=== PATIENT | female | born 1985 | race Asian ===

== ENCOUNTER 2020-03-29 07:08 | Outpatient (REF) | payer OTHER, SELFPAY ==
[2020-03-29 11:24] LABS: Glucose Urine UA NEG (NEG); Leukocyte Esterase Urine NEG (NEG); Nitrite Urine NEG (NEG); PH 6.5 (5.0-8.0); Specific Gravity - Urine 1.025 (1.005-1.025); Urine Blood NEG (NEG); Urine Ketones NEG (NEG); Urine Protein NEG (NEG-TRACE)
[2020-03-29 11:29] LABS: Appearance Urine CLEAR; Color Urine YELLOW
[2020-03-29 11:39] LABS: Hematocrit 37.9 % (37-47); Hemoglobin 12.8 g/dl (12.0-16.0); Mean Corpuscular HGB Conc 33.8 g/dl (31.0-35.0); Mean Corpuscular Hemoglobin 30.3 pg (27.0-33.0); Mean Corpuscular Volume 89.6 fL (80-98); Mean Platelet Volume 10.1 fL (9.4-12.3); Platelet Count 301 X10*3/uL (160-400); Red Blood Count 4.23 X10*6/uL (4.20-5.50); Red Cell Distribution Width 12.6 % (11.0-16.0); White Blood Count 7.5 X10*3/uL (4.8-10.8)
[2020-03-29 12:18] LABS: Alanine Aminotransferase 14 U/L (0-31); Alkaline Phosphatase 63 U/L (39-117); Anion Gap 13 (12-20); Aspartate Amino Transferase 11 U/L (5-31); Bilirubin Total 0.2 mg/dL (0.0-1.0); Blood Urea Nitrogen 15 mg/dL (9-16); Calcium 9.1 mg/dL (8.4-10.2); Carbon Dioxide 23 mmol/L (22-29); Chloride 107 mmol/L (96-108); Cholesterol 220 mg/dL; Estimated Glomerular Filt Rate > 60; Glucose Fasting 84 mg/dL (60-99); HDL Cholesterol 43 mg/dL; LDL Cholesterol Calculated 115 mg/dl; Potassium 4.2 mmol/l (3.3-5.1); Sodium 139 mmol/L (135-145); Total Protein 6.7 g/dL (6.5-8.0); Triglycerides 311 mg/dL
[2020-03-29 12:19] LABS: Free T4 (Free Thyroxine) 0.97 ng/dL (0.71-1.85); Thyroid Stimulating Hormone 3.34 mIU/mL (0.32-4.0)
[2020-03-29 13:11] LABS: Rheumatoid Factor < 15.0 IU/mL (<15.0)
[2020-03-29 14:07] LABS: Erythrocyte Sedimentation Rate 13 MM/HR (0-20)
[2020-03-31 11:07] LABS: Cyclic Citrullinated Peptide 31 UNITS
== END 2020-03-29 07:09 | disposition home or self-care (01) ==
LOC: HO.HMGCLDS 07:08
PROVIDERS: PCP Internal Medicine; Visit Provider Internal Medicine
DX: Z00.00 Encounter for general adult medical examination without abnormal findings (principal); F51.02 Adjustment insomnia; R53.83 Other fatigue; M25.50 Pain in unspecified joint
CPT/HCPCS: 36415; 80053; 80061; 81003; 84439; 84443; 85027; 85652; 86200; 86431

== ENCOUNTER 2020-05-31 07:44 | Outpatient (REF) | payer OTHER, SELFPAY ==
[2020-05-31 11:55] LABS: HCG Quantitative 509 mIU/mL
== END 2020-05-31 07:45 | disposition home or self-care (01) ==
LOC: HO.HMGCLDS 07:44
PROVIDERS: PCP Internal Medicine; Visit Provider Hospitalist
DX: N91.2 Amenorrhea, unspecified (principal); Z32.01 Encounter for pregnancy test, result positive
CPT/HCPCS: 84702

== ENCOUNTER 2020-07-06 14:54 | Outpatient (REF) | payer OTHER, SELFPAY ==
--- NOTE | 2020-07-06 15:55 | XR_ITS ---
EXAMINATION: XR BILATERAL HAND XR BILATERAL KNEE CLINICAL INFORMATION: Knee pain and hand pain. COMPARISON: None TECHNIQUE: 3 views each knee. 4 views each hand. FINDINGS: RIGHT KNEE: There is a mild reduction in medial and patellofemoral compartment joint space with periarticular spurring. There are no loose bodies or bony erosive changes. The soft tissues are normal. LEFT KNEE: There is mild loss of medial and patellofemoral compartment joint space. There is mild superior patellar spurring. No loose bodies or bony erosive changes seen. The soft tissues are normal. RIGHT HAND/WRIST: There is no visible acute fracture, dislocation or subluxation seen. The soft tissues are normal. No bony erosive changes seen. LEFT HAND/WRIST: Left wrist and left hand joint space is maintained normal. No bony erosive changes or loose body seen. There is no abnormal joint effusion. XR/XR hand wrist RT IMPRESSION: 1. Mild degenerative changes both knees without any joint effusion or bony erosive changes. There is mild superior patellar spurring. No loose body seen. 2. Unremarkable right hand/wrist exam.
--- NOTE | 2020-07-06 15:55 | XR_ITS ---
EXAMINATION: XR BILATERAL HAND XR BILATERAL KNEE CLINICAL INFORMATION: Knee pain and hand pain. COMPARISON: None TECHNIQUE: 3 views each knee. 4 views each hand. FINDINGS: RIGHT KNEE: There is a mild reduction in medial and patellofemoral compartment joint space with periarticular spurring. There are no loose bodies or bony erosive changes. The soft tissues are normal. LEFT KNEE: There is mild loss of medial and patellofemoral compartment joint space. There is mild superior patellar spurring. No loose bodies or bony erosive changes seen. The soft tissues are normal. RIGHT HAND/WRIST: There is no visible acute fracture, dislocation or subluxation seen. The soft tissues are normal. No bony erosive changes seen. LEFT HAND/WRIST: Left wrist and left hand joint space is maintained normal. No bony erosive changes or loose body seen. There is no abnormal joint effusion. XR/XR hand wrist LT IMPRESSION: 1. Mild degenerative changes both knees without any joint effusion or bony erosive changes. There is mild superior patellar spurring. No loose body seen. 2. Unremarkable right hand/wrist exam.
--- NOTE | 2020-07-06 15:55 | XR_ITS ---
EXAMINATION: XR BILATERAL HAND XR BILATERAL KNEE CLINICAL INFORMATION: Knee pain and hand pain. COMPARISON: None TECHNIQUE: 3 views each knee. 4 views each hand. FINDINGS: RIGHT KNEE: There is a mild reduction in medial and patellofemoral compartment joint space with periarticular spurring. There are no loose bodies or bony erosive changes. The soft tissues are normal. LEFT KNEE: There is mild loss of medial and patellofemoral compartment joint space. There is mild superior patellar spurring. No loose bodies or bony erosive changes seen. The soft tissues are normal. RIGHT HAND/WRIST: There is no visible acute fracture, dislocation or subluxation seen. The soft tissues are normal. No bony erosive changes seen. LEFT HAND/WRIST: Left wrist and left hand joint space is maintained normal. No bony erosive changes or loose body seen. There is no abnormal joint effusion. XR/XR knee RT 3V IMPRESSION: 1. Mild degenerative changes both knees without any joint effusion or bony erosive changes. There is mild superior patellar spurring. No loose body seen. 2. Unremarkable right hand/wrist exam.
--- NOTE | 2020-07-06 15:55 | XR_ITS ---
EXAMINATION: XR BILATERAL HAND XR BILATERAL KNEE CLINICAL INFORMATION: Knee pain and hand pain. COMPARISON: None TECHNIQUE: 3 views each knee. 4 views each hand. FINDINGS: RIGHT KNEE: There is a mild reduction in medial and patellofemoral compartment joint space with periarticular spurring. There are no loose bodies or bony erosive changes. The soft tissues are normal. LEFT KNEE: There is mild loss of medial and patellofemoral compartment joint space. There is mild superior patellar spurring. No loose bodies or bony erosive changes seen. The soft tissues are normal. RIGHT HAND/WRIST: There is no visible acute fracture, dislocation or subluxation seen. The soft tissues are normal. No bony erosive changes seen. LEFT HAND/WRIST: Left wrist and left hand joint space is maintained normal. No bony erosive changes or loose body seen. There is no abnormal joint effusion. XR/XR knee LT 3V IMPRESSION: 1. Mild degenerative changes both knees without any joint effusion or bony erosive changes. There is mild superior patellar spurring. No loose body seen. 2. Unremarkable right hand/wrist exam.
[2020-07-06 16:05] LABS: MANUAL DIFF FLAG NO
[2020-07-06 16:06] LABS: Basophils Percent Auto 0.5 % (0-2); Eosinophils Absolute Auto 0.5 X10*3/uL (0.0-0.4); Hematocrit 40.1 % (37-47); Hemoglobin 13.2 g/dl (12.0-16.0); Imm Gran Abs Auto 0.02 X10*3/uL (0.00-0.03); Imm Gran Pct Auto 0.3 % (0.0-0.4); Lymphocytes Absolute Auto 3.1 X10*3/uL (1.2-4.9); Lymphocytes Percent Auto 40.2 % (20-40); Mean Corpuscular HGB Conc 32.9 g/dl (31.0-35.0); Mean Corpuscular Hemoglobin 29.5 pg (27.0-33.0); Mean Corpuscular Volume 89.5 fL (80-98); Mean Platelet Volume 9.7 fL (9.4-12.3); Monocytes Absolute Auto 0.5 X10*3/uL (0.1-1.2); Neutrophils Absolute Auto 3.5 X10*3/uL (2.0-8.3); Platelet Count 281 X10*3/uL (160-400); Red Blood Count 4.48 X10*6/uL (4.20-5.50); Red Cell Distribution Width 11.9 % (11.0-16.0); White Blood Count 7.6 X10*3/uL (4.8-10.8)
[2020-07-06 16:31] LABS: Alanine Aminotransferase 15 U/L (0-31); Albumin Level 4.4 g/dL (3.5-5.0); Alkaline Phosphatase 72 U/L (39-117); Anion Gap 12 (12-20); Aspartate Amino Transferase 15 U/L (5-31); Bilirubin Total 0.5 mg/dL (0.0-1.0); Blood Urea Nitrogen 12 mg/dL (9-16); C Reactive Protein 0.29 mg/dL (< or = 0.50); Calcium 9.3 mg/dL (8.4-10.2); Carbon Dioxide 27 mmol/L (22-29); Chloride 104 mmol/L (96-108); Cholesterol 247 mg/dL; Estimated Glomerular Filt Rate > 60; Glucose Random 80 mg/dL (60-115); HDL Cholesterol 51 mg/dL; LDL Cholesterol Calculated 156 mg/dl; Potassium 4.1 mmol/l (3.3-5.1); Sodium 139 mmol/L (135-145); Total Protein 7.3 g/dL (6.5-8.0); Triglycerides 203 mg/dL
[2020-07-06 16:51] LABS: Thyroid Stimulating Hormone 1.71 uIU/mL (0.32-4.0)
[2020-07-06 17:02] LABS: Erythrocyte Sedimentation Rate 13 MM/HR (0-20)
[2020-07-07 04:41] LABS: HBc Num1 0.07 S/CO (0.00-0.79); HBsAGNum1 0.55 S/CO (0.00-0.99); Hepatitis B Core Antibody Nonreactive (Nonreactive); Hepatitis B Surface Antigen Negative (Negative); ~HepC Num1 0.09 S/CO (0.00-0.79); ~Hepatitis B Surface Antibody REACTIVE (Nonreactive); ~Hepatitis C Antibody Nonreactive (Nonreactive)
[2020-07-07 12:52] LABS: Anti Nuclear Antibody Screen NEGATIVE (NEGATIVE); Antibody to SS-A Antigen <1.0 NEG AI (<1.0 NEG); Antibody to SS-B Antigen <1.0 NEG AI (<1.0 NEG)
[2020-07-08 03:46] LABS: Hepatitis A Antibody IgM 0.11 Index (0-0.79); ~Hepatitis A Antibody IgM Nonreactive (Nonreactive)
[2020-07-09 14:37] LABS: TS Negative Control Passed; TS Panel A 1; TS Panel B 0; TS Positive Control Passed; TSpotTB Negative (SeeBelow)
== END 2020-07-06 14:55 | disposition home or self-care (01) ==
LOC: HO.LAB 14:54
PROVIDERS: PCP Internal Medicine; Referring Provider Internal Medicine; Visit Provider Student in an Organized Health Care Education/Training Program
DX: R76.8 Other specified abnormal immunological findings in serum (principal); E78.5 Hyperlipidemia, unspecified
CPT/HCPCS: 36415; 73110; 73130; 73562; 80053; 80061; 84443; 85025; 85652; 86038; 86039; 86140; 86235; 86481; 86704; 86706; 86709; 86803; 87340

== ENCOUNTER → 2020-08-09 13:03 | Outpatient (BNVA) | payer OTHER, SELFPAY | PROVIDERS: PCP Internal Medicine; Visit Provider Student in an Organized Health Care Education/Training Program ==

== ENCOUNTER 2020-10-12 15:06 | Outpatient (REF) | payer OTHER, SELFPAY ==
[2020-10-12 17:06] LABS: HCG Quantitative 2095 mIU/mL
== END 2020-10-12 15:07 | disposition home or self-care (01) ==
LOC: HO.HMGCLDS 15:06
PROVIDERS: PCP Internal Medicine; Visit Provider Obstetrics & Gynecology
DX: N91.1 Secondary amenorrhea (principal)
CPT/HCPCS: 36415; 84702

== ENCOUNTER 2020-10-14 15:09 | Outpatient (REF) | payer OTHER, SELFPAY ==
[2020-10-14 17:46] LABS: HCG Quantitative 4541 mIU/mL
== END 2020-10-14 15:10 | disposition home or self-care (01) ==
LOC: HO.HMGCLDS 15:09
PROVIDERS: PCP Internal Medicine; Visit Provider Obstetrics & Gynecology
DX: Z32.01 Encounter for pregnancy test, result positive (principal); Z3A.00 Weeks of gestation of pregnancy not specified
CPT/HCPCS: 36415; 84702

== ENCOUNTER 2021-10-12 09:01 | Outpatient (REF) | payer OTHER, SELFPAY ==
--- NOTE | ~2021-10-12 | XR_ITS ---
EXAMINATION: XR FOOT, LEFT CLINICAL INFORMATION: Pain all over left foot. COMPARISON: None TECHNIQUE: AP, lateral, and oblique views of the left foot. FINDINGS: There is no acute fracture or dislocation. The tarsal bones are normally aligned. Mild to moderate soft tissue swelling. XR/XR foot LT min 3V IMPRESSION: Mild to moderate soft tissue swelling without acute underlying osseous abnormality.
--- NOTE | ~2021-10-12 | XR_ITS ---
EXAMINATION: XR FOOT, RIGHT CLINICAL INFORMATION: Pain over right foot. COMPARISON: None TECHNIQUE: AP, lateral, and oblique views of the right foot. FINDINGS: There is no acute fracture or dislocation. The joint spaces are unremarkable. The tarsal bones are normally aligned. There is mild to moderate soft tissue swelling. XR/XR foot RT min 3V IMPRESSION: Mild to moderate soft tissue swelling without acute underlying osseous abnormality.
[2021-10-12 11:25] LABS: C Reactive Protein 0.36 mg/dL (< or = 0.50)
[2021-10-12 11:37] LABS: TSH reflex Free T4 1.56 uIU/mL (0.32-4.0)
[2021-10-12 12:03] LABS: Erythrocyte Sedimentation Rate 13 MM/HR (0-20)
== END 2021-10-12 09:02 | disposition home or self-care (01) ==
LOC: HO.LAB 09:01
PROVIDERS: PCP Internal Medicine; Visit Provider Internal Medicine Rheumatology
DX: M25.50 Pain in unspecified joint (principal); R76.8 Other specified abnormal immunological findings in serum; M79.641 Pain in right hand; M79.642 Pain in left hand; M79.671 Pain in right foot; M79.672 Pain in left foot; R63.5 Abnormal weight gain; Z79.899 Other long term (current) drug therapy
CPT/HCPCS: 36415; 73630; 84443; 85652; 86140

== ENCOUNTER 2022-02-14 10:57 | Outpatient (REF) | payer OTHER, SELFPAY ==
[2022-02-14 13:42] LABS: MANUAL DIFF FLAG NO
[2022-02-14 13:53] LABS: Basophils Percent Auto 0.5 % (0-2); Eosinophils Absolute Auto 0.2 X10*3/uL (0.0-0.4); Eosinophils Percent Auto 2.6 % (0-4); Hematocrit 37.8 % (37.0-47.0); Hemoglobin 12.6 g/dl (12.0-16.0); Imm Gran Abs Auto 0.04 X10*3/uL (0.00-0.03); Imm Gran Pct Auto 0.5 % (0.0-0.4); Lymphocytes Absolute Auto 3.4 X10*3/uL (1.2-4.9); Lymphocytes Percent Auto 42.6 % (20-40); Mean Corpuscular HGB Conc 33.3 g/dl (31.0-35.0); Mean Corpuscular Hemoglobin 28.3 pg (27.0-33.0); Mean Corpuscular Volume 84.8 fL (80.0-98.0); Mean Platelet Volume 10.2 fL (9.4-12.3); Monocytes Absolute Auto 0.6 X10*3/uL (0.1-1.2); Monocytes Percent Auto 7.7 % (2-11); Neutrophils Absolute Auto 3.7 x10*3/uL (2.0-8.3); Neutrophils Percent Auto 46.1 % (45-73); Platelet Count 322 X10*3/uL (160-400); Red Blood Count 4.46 X10*6/uL (4.20-5.50); Red Cell Distribution Width 12.9 % (11.0-16.0); White Blood Count 8.1 X10*3/uL (4.8-10.8)
[2022-02-14 14:03] LABS: C Reactive Protein 0.26 mg/dL (< or = 0.50)
[2022-02-14 14:35] LABS: Erythrocyte Sedimentation Rate 13 MM/HR (0-20)
== END 2022-02-14 10:58 | disposition home or self-care (01) ==
LOC: HO.10HDL 10:57
PROVIDERS: Visit Provider Internal Medicine Rheumatology
DX: M06.9 Rheumatoid arthritis, unspecified (principal)
CPT/HCPCS: 36415; 85025; 85652; 86140

== ENCOUNTER 2023-05-10 10:18 | Outpatient (REF) | payer OTHER, SELFPAY ==
[2023-05-10 11:38] LABS: MANUAL DIFF FLAG NO
[2023-05-10 12:19] LABS: Basophils Percent Auto 0.6 % (0-2); Eosinophils Absolute Auto 0.1 X10*3/uL (0.0-0.4); Eosinophils Percent Auto 1.5 % (0-4); Hematocrit 40.4 % (37.0-47.0); Hemoglobin 13.6 g/dl (12.0-16.0); Imm Gran Abs Auto 0.03 X10*3/uL (0.00-0.03); Imm Gran Pct Auto 0.5 % (0.0-0.4); Lymphocytes Absolute Auto 2.9 X10*3/uL (1.2-4.9); Lymphocytes Percent Auto 43.4 % (20-40); Mean Corpuscular HGB Conc 33.7 g/dl (31.0-35.0); Mean Corpuscular Hemoglobin 29.6 pg (27.0-33.0); Mean Platelet Volume 10.5 fL (9.4-12.3); Monocytes Absolute Auto 0.6 X10*3/uL (0.1-1.2); Monocytes Percent Auto 8.9 % (2-11); Neutrophils Percent Auto 45.1 % (45-73); Platelet Count 251 X10*3/uL (160-400); Red Blood Count 4.59 X10*6/uL (4.20-5.50); Red Cell Distribution Width 13.1 % (11.0-16.0); White Blood Count 6.6 X10*3/uL (4.8-10.8)
[2023-05-10 12:46] LABS: Alanine Aminotransferase 24 U/L (0-31); Albumin Level 4.4 g/dL (3.5-5.0); Alkaline Phosphatase 77 U/L (39-117); Anion Gap 11 (12-20); Aspartate Amino Transferase 18 U/L (5-31); Bilirubin Total 0.5 mg/dL (0.0-1.0); Blood Urea Nitrogen 14 mg/dL (9-16); C Reactive Protein 0.27 mg/dL (< or = 0.50); Carbon Dioxide 27 mmol/L (22-29); Chloride 106 mmol/L (96-108); Estimated Glomerular Filt Rate > 60; Glucose Random 82 mg/dL (60-115); Potassium 4.3 mmol/L (3.3-5.1); Sodium 140 mmol/L (135-145); Total Protein 7.8 g/dL (6.5-8.0)
[2023-05-10 13:01] LABS: Erythrocyte Sedimentation Rate 10 MM/HR (0-20)
== END 2023-05-10 10:19 | disposition home or self-care (01) ==
LOC: HO.LAB 10:18
PROVIDERS: PCP Internal Medicine; Visit Provider Nurse Practitioner Family
DX: M05.79 Rheumatoid arthritis with rheumatoid factor of multiple sites without organ or systems involvement (principal); Z79.899 Other long term (current) drug therapy
CPT/HCPCS: 36415; 80053; 85025; 85652; 86140

== ENCOUNTER 2023-05-10 10:18 | Outpatient (AMB) | payer OTHER, SELFPAY ==
--- NOTE | 2023-05-10 10:22 | A.OFFVIS_ITS ---
Intake Vital Signs 05/10/23 10:23 Height 5 ft Weight 205 lb 4.006 oz BMI 40.1 BP 118/64 Blood Pressure Location Rt brachial Position Sitting Pulse 85 Pulse Source Pulse Oximeter Temp 97 F Temp Source Skin Pulse Oximetry (%) 97 Oxygen Delivery Method Room Air Intake Visit Reasons: RA Intake Note: Patient presents today to follow up on RA and for further refills. Last seen by Dr. Painting on 03/06/22. Has not taken plaquenil for about 4 weeks due to needing appt for further refills. Last eye exam March,. Has upcoming appt Jul, 2023. Reports giving 12/14/22. Currently . Thread Separator Required: No Accompanied by: Self / Same As Patient Allergies Environmental Allergy (Intermediate, Uncoded 05/10/23 10:27) sneezing, cough, itchy throat HPI HPI Comments History of Present Illness Details Ms. Parada 37-year-old female of heritage, here for follow-up of CCP positive rheumatoid arthritis, last seen February 2022. She is currently on hydroxychloroquine 200 mg b.i.d.. She reports it has been 3 weeks since her last dose and she can feel the return of symptoms especially in her hands and her feet. She recently gave in 2022. Last Visit: The patient presents with complaints of joint pains and history of positive anti CCP antibody. I had last seen her about 4 months ago. At that point she was seemingly coping reasonably well with the pains. She says the feet seem to be worse this summer. This is characterized by instep and MTP pains. They seem to be worse in the nighttime and also when she first stands up. She does take acetaminophen [id number], sometimes as much as 6 Tylenol Arthritis in 24 hours. She does find it somewhat helpful. She also was trying some [id number] naproxen. The hand pain she says is more tolerable. She does get occasional heartburn. For that she takes [id number] omeprazole. [facility] Medical History (Updated 05/10/23 @ 11:51 by DARYL Beckham) Rheumatoid arthritis involving multiple sites with positive rheumatoid factor Weight gain Foot pain, bilateral Bilateral hand pain Bronchitis Grieving family Hyperlipemia Knee pain Positive anti-CCP test Annual physical exam Normal Pap smear Acne Asthma Obesity Surgical History (Updated 05/10/23 @ 10:29 by MAC Up) Hx of section [place] teeth extracted Family History Father Vertigo Mother No problems noted. Maternal Grandfather No problems noted. Maternal Grandmother No problems noted. Paternal Grandfather No problems noted. Paternal Grandmother No problems noted. Brother No problems noted. Brother No problems noted. Brother No problems noted. Sister No problems noted. Sister No problems noted. Son No problems noted. Son No problems noted. Social History Alcohol intake: never Patient Tobacco Use Status: Never used Tobacco Female Reproductive History Menstrual Total pregnancies: 5 Number of Living Children: 3 Ab spontaneous: 1 Physical Exam Vital Signs: Last Vital Signs Temp 97 F 05/10/23 10:23 Pulse 85 05/10/23 10:23 BP 118/64 05/10/23 10:23 Pulse Ox 97 05/10/23 10:23 Oxygen Delivery Method Room Air 05/10/23 10:23 BMI result Body Mass Index 40.1 APPEARANCE: Patient in no acute distress EYES no redness, pupils equal and reactive to light, eyelids normal EXTREMITIES: No edema, no calf tenderness, normal peripheral pulses. JOINT EXAM: Cervical Spine:.? Full range of motion without pain; no tenderness. Thoracic Spine:.? No scoliosis.? No tenderness on palpation. Lumbar Spine:.? Alignment normal.? Slight discomfort with full flexion.? No tenderness. Chest Wall:.? No tenderness, swelling, increased warmth or erythema. Hands:? Right: There is slight tenderness at the 1st 2 MCP joints. No areas of swelling today.? Motion is with mild pain.? There is no triggering, thenar atrophy or sensory loss.? Left:? Mild tenderness at the 1st 3 MCP joints and the 2nd through 5th PIP joints , without swelling but mild pain with motion.? No flexor tendon triggering, thenar atrophy or sensory loss. Wrists:.? Left: Normal pain-free range of motion without tenderness or swelling. Right: Mild pain with flexion at 90 degrees but only some slight tenderness there is no swelling, increased warmth or erythema. Elbows:. Normal pain-free range of motion without,swelling, increased warmth or erythema. Tenderness to epicondyles Shoulders:.?? Full range of motion without pain. No tenderness, weakness, swelling, increased warmth or erythema. Hips:.? Full range of motion without pain. Hip bursa:.? mild tenderness. Knees:.?? Normal pain-free range of motion with slight medial tenderness but no effusions, crepitus, swelling, increased warmth or erythema. Ankles:.? Normal pain-free range of motion with slight medial and lateral tenderness but there is no pain with motion, swelling,? increased warmth or erythema. Feet:? Right:? Slight tenderness in the instep in the instep and 1st 2 MTP joints but no swelling is appreciated.? No deformity.? No sensory loss.? Left:? Mild tenderness at the instep region, squeeze tenderness across MTP? Increase soreness with walking per patient but no swelling, increased warmth or erythema seen on PE. Tender points:.? Slight tenderness to digital palpation at the? trapezius, right lateral epicondyle, greater trochanter area bilaterally. ? Assessment & Plan Assessment & Plan (1) Rheumatoid arthritis involving multiple sites with positive rheumatoid factor: Comment: 03/2022: hydroxychloroquine started after eye exam was OK. Patient has eye exam scheduled for jul 2023 Code(s): M05.79 - Rheumatoid arthritis with rheumatoid factor of multiple sites without organ or systems involvement (2) Long-term use of hydroxychloroquine: Code(s): Z79.899 - Other senior care (current) drug therapy Plan #CCP positive RA. Ms. Chávez was found to have CCP positive rheumatoid arthritis in June 2020 and is being treated since March 2022 on hydroxychloroquine 200 mg b.i.d. She takes Aleve and Tylenol to supplement. She has been off her medication for the past 3 weeks and reports that she can feel the worsening in her joints. This has helped to affirm for her that the medication does make a difference. The patient has continued joint pain, currently worse in the hands and feet. There are many tender areas (see PE), likely to be inflammatory and consistent with rheumatoid arthritis. However, compared to today's visit her PE at the last visit revealed the same tender points and joint concerns. This leads me to question whether hydroxychloroquine provides adequate coverage for the RA. Nonetheless, I will restart hydroxychloroquine and once she is on it for a period of 3-6 months, we can reassess if it is adequately therapeutic. #Fpc Use of Plaquenil:We reviewed the potential side effects of HCQ - she has schedule for an eye exam for August 03 and will obtain lab work today. In addition, I reviewed with her to take naproxen at 440 mg b.i.d. with food and to continue to take omeprazole 20 mg on a daily basis. She could still add acetaminophen to the naproxen but should not exceed 3,000mg acetaminophen in 24 hours. I will recheck CRP, CBC and ESR. We will aim for follow-up at about 4 months. Orders: Orders Complete Blood Count Auto Diff Today M06.9 - Rheumatoid arthritis, unspecified Erythrocyte Sedimentation Rate Today M06.9 - Rheumatoid arthritis, unspecified C Reactive Protein Today M06.9 - Rheumatoid arthritis, unspecified Comprehensive Met. Panel Today M06.9 - Rheumatoid arthritis, unspecified Medications: Refilled hydroxychloroquine 200 mg PO BID 60 tabs 5RF M06.9 - Rheumatoid arthritis, unspecified Coding Level of Care Code Est Pt Level 3 (86176) Diagnoses Rheumatoid arthritis involving multiple sites with positive rheumatoid factor M05.79 Long-term use of hydroxychloroquine Z79.899
[2023-05-10 10:23] VITALS: BP 118/64; PULSE 85; TEMP 36.1; O2SAT 97; BMI 40.1
== END 2023-05-10 10:57 | disposition home or self-care (01) ==
PROVIDERS: PCP Internal Medicine; Visit Provider Nurse Practitioner Family
DX: M05.79 Rheumatoid arthritis with rheumatoid factor of multiple sites without organ or systems involvement (principal); Z79.899 Other long term (current) drug therapy
CPT/HCPCS: 99213

== ENCOUNTER 2023-05-27 14:03 | Outpatient (REF) | payer OTHER, SELFPAY ==
[2023-05-27 14:57] LABS: HCG Quantitative < 2 mIU/mL
== END 2023-05-27 14:04 | disposition home or self-care (01) ==
LOC: HO.LAB 14:03
PROVIDERS: Visit Provider Nurse Practitioner Family
DX: M05.79 Rheumatoid arthritis with rheumatoid factor of multiple sites without organ or systems involvement (principal); Z79.60 Long term (current) use of unspecified immunomodulators and immunosuppressants
CPT/HCPCS: 36415; 84702

== ENCOUNTER 2023-08-08 16:30 | Outpatient (REF) | payer OTHER, SELFPAY ==
[2023-08-09 04:37] LABS: HBc Num1 0.07 S/CO (0.00-0.79); HBsAGNum1 0.32 S/CO (0.00-0.99); Hepatitis B Core Antibody Nonreactive (Nonreactive); Hepatitis B Surface Antigen Negative (Negative); ~HepC Num1 0.08 S/CO (0.00-0.79); ~Hepatitis B Surface Antibody REACTIVE (Nonreactive); ~Hepatitis C Antibody Nonreactive (Nonreactive)
[2023-08-09 05:21] LABS: Hepatitis A Antibody IgM 0.14 Index (0-0.79); ~Hepatitis A Antibody IgM Nonreactive (Nonreactive)
[2023-08-10 19:53] LABS: TS Negative Control Passed; TS Panel A 0; TS Panel B 0; TS Positive Control Passed; TSpotTB Negative (Negative)
== END 2023-08-08 16:31 | disposition home or self-care (01) ==
LOC: HO.LAB 16:30
PROVIDERS: PCP Internal Medicine; Visit Provider Nurse Practitioner Family
DX: Z11.7 Encounter for testing for latent tuberculosis infection (principal); Z11.8 Encounter for screening for other infectious and parasitic diseases; M05.79 Rheumatoid arthritis with rheumatoid factor of multiple sites without organ or systems involvement
CPT/HCPCS: 36415; 86481; 86704; 86706; 86709; 86803; 87340